=== PATIENT | male | born 1985 | race Caucasian/White ===

== ENCOUNTER 2019-10-21 14:25 | Emergency (ER) | payer MEDICARE ==
[~2019-10-21] VITALS: Ht 175.3 cm; Wt 90.0 kg
[2019-10-21 17:55] VITALS: BP 163/87
== END 2019-10-21 18:01 | disposition home or self-care (01) ==
LOC: ER 14:25
DX: T40.603A Poisoning by unspecified narcotics, assault, initial encounter (principal); M79.605 Pain in left leg; Y92.89 Other specified places as the place of occurrence of the external cause
CPT/HCPCS: 99283